=== PATIENT | male | born 1955 | race Caucasian/White ===

== ENCOUNTER 2017-05-13 14:35 | Emergency (ER) | payer OTHER, BC ==
[~2017-05-13] VITALS: Ht 167.6 cm; Wt 104.3 kg
[~2017-05-13 14:35] MED LIST: AC325T PO; ALBU0.8322 IH; CEPH-507 PO; CHOL5000 PO; D-ME118S7 PO; FLUT1DIS26 IH; FLUT1DIS27; HYDR-757 PO; IBUP-30 PO; OMEG-9 PO; OMEP20CA12 PO; OSLT75C PO; PANT40SU PO; TRM50T PO; fish oil
--- OUTSIDE RECORDS SUMMARY | 2017-05-13 14:42 | XMS REPORT | Continuity of Care Document ---
Author Author [facility] Organization [facility] Address Unknown Phone Unavailable Allergies Active Description Code Type Severity Reaction Onset Reported/Identified Relationship to Patient Clinical Status Yes methylphenidate [id number] Drug Allergy Unknown N/A 10/21/2005 Yes Sulfa (Sulfonamide Antibiotics) [id number] Drug Allergy Unknown N/A 2005 Yes ketorolac [id number] Drug Allergy Mild N/A 07/18/2009 Yes phenobarbital [id number] Drug Allergy Unknown N/A 05/14/2012 Medications There is no data. Problems Date Dx Coded Attending Type Code Diagnosis Diagnosed By 07/18/2009 Ot 816.02 07/18/2009 Ot 923.3 07/18/2009 Ot 959.5 07/18/2009 Ot E000.8 07/18/2009 Ot E030 07/18/2009 Ot E849.0 07/18/2009 Ot E918 03/14/2010 Ot 535.10 03/14/2010 Ot 562.10 03/14/2010 Ot V12.72 03/14/2010 Ot V45.89 02/19/2011 Ot V57.21 ENCOUNTER FOR OCCUPATIONAL THERAPY 02/19/2011 Ot V58.43 AFTERCARE POST SURGERY INJURY/TRAUMA 05/14/2012 Ot 568.0 PERITONEAL ARICSKWOH-QXYU-GM/INF 04/12/2014 Ot 272.4 04/12/2014 Ot 272.4 04/12/2014 Ot 785.1 04/12/2014 Ot 272.4 04/12/2014 Ot 401.9 04/12/2014 Ot 785.1 04/12/2014 Ot 786.50 04/12/2014 Ot 397.0 04/12/2014 Ot 424.0 04/12/2014 Ot 785.1 04/12/2014 Ot 786.50 04/12/2014 Ot 272.4 04/12/2014 Ot 272.4 04/12/2014 Ot 401.9 04/12/2014 Ot 550.90 04/12/2014 Ot V72.63 04/12/2014 Ot V72.83 04/12/2014 Ot V74.8 04/12/2014 HARDIK LOPEZP Ot 272.4 04/12/2014 HARDIK LOPEZP Ot 401.9 04/12/2014 DEEPAK FLORES, ALEX Wolff Ot 272.4 04/12/2014 DEEPAK FLORES, ALEX J Ot 401.9 04/12/2014 DEEPAK FLORES, ALEX J Ot 414.00 04/12/2014 DEEPAK FLORES, ALEX J Ot 496 04/12/2014 DEEPAK FLORES, ALEX Wolff Ot 786.09 04/12/2014 DEEPAK FLORES, ALEX Wolff Ot 272.4 04/12/2014 DEEPAK FLORES, ALEX Wolff Ot 401.9 04/12/2014 DEEPAK FLORES, ALEX Wolff Ot 414.00 04/12/2014 DEEPAK FLORES, ALEX Wolff Ot 496 04/12/2014 DEEPAK FLORES, ALEX Wolff Ot 786.09 04/12/2014 DEEPAK FLORES, ALEX Wolff Ot 272.4 04/12/2014 DEEPAK FLORES, ALEX Wolff Ot 278.00 04/12/2014 DEEPAK FLORES, ALEX Wolff Ot 401.9 04/12/2014 DEEPAK FLORES, ALEX Wolff Ot 414.00 04/12/2014 DEEPAK FLORES, ALEX Wolff Ot 786.50 04/12/2014 Ot 272.4 04/12/2014 Ot 272.4 04/12/2014 Ot 785.1 04/12/2014 Ot 272.4 04/12/2014 Ot 401.9 04/12/2014 Ot 785.1 04/12/2014 Ot 786.50 04/12/2014 Ot 397.0 04/12/2014 Ot 424.0 04/12/2014 Ot 785.1 04/12/2014 Ot 786.50 04/12/2014 Ot 272.4 04/12/2014 Ot 272.4 04/12/2014 Ot 401.9 04/12/2014 Ot 550.90 04/12/2014 Ot V72.63 04/12/2014 Ot V72.83 04/12/2014 Ot V74.8 04/12/2014 HARDIK LOPEZ SUPERVISOR PUMPING Ot 272.4 04/12/2014 HARDIK LOPEZP Ot 401.9 04/12/2014 DEEPAK FLORES, ALEX J Ot 272.4 04/12/2014 DEEPAK FLORES, ALEX Wolff Ot 401.9 04/12/2014 DEEPAK FLORES, ALEX J Ot 414.00 04/12/2014 DEEPAK FLORES, ALEX J Ot 496 04/12/2014 DEEPAK FLORES, ALEX Wolff Ot 786.09 04/12/2014 DEEPAK FLORES, ALEX Wolff Ot 272.4 04/12/2014 DEEPAK FLORES, ALEX J Ot 401.9 04/12/2014 DEEPAK FLORES, ALEX J Ot 414.00 04/12/2014 DEEPAK FLORES, ALEX Wolff Ot 496 04/12/2014 DEEPAK FLORES, ALEX Wolff Ot 786.09 04/12/2014 DEEPAK FLORES, ALEX Wolff Ot 272.4 04/12/2014 DEEPAK FLORES, ALEX Wolff Ot 278.00 04/12/2014 DEEPAK FLORES, ALEX Wolff Ot 401.9 04/12/2014 DEEPAK FLORES, ALEX Wolff Ot 414.00 04/12/2014 DEEPAK FLORES, ALEX Wolff Ot 786.50 04/12/2014 Ot 272.4 04/12/2014 Ot 272.4 04/12/2014 Ot 785.1 04/12/2014 Ot 272.4 04/12/2014 Ot 401.9 04/12/2014 Ot 785.1 04/12/2014 Ot 786.50 04/12/2014 Ot 397.0 04/12/2014 Ot 424.0 04/12/2014 Ot 785.1 04/12/2014 Ot 786.50 04/12/2014 Ot 272.4 04/12/2014 Ot 272.4 04/12/2014 Ot 401.9 04/12/2014 Ot 550.90 04/12/2014 Ot V72.63 04/12/2014 Ot V72.83 04/12/2014 Ot V74.8 04/12/2014 HARDIK LOPEZ SUPERVISOR PUMPING Ot 272.4 04/12/2014 HARDIK LOPEZ SUPERVISOR PUMPING Ot 401.9 04/12/2014 DEEPAK FLORES, ALEX Wolff Ot 272.4 04/12/2014 DEEPAK FLORES, ALEX Wolff Ot 401.9 04/12/2014 DEEPAK FLORES, ALEX Wolff Ot 414.00 04/12/2014 DEEPAK FLORES, BASHAR J Ot 496 04/12/2014 DEEPAK FLORES, BASRICO J Ot 786.09 04/12/2014 DEEPAK FLORES, ALEX J Ot 272.4 04/12/2014 DEEPAK FLORES, ALEX J Ot 401.9 04/12/2014 DEEPAK FLORES, BASHAR J Ot 414.00 04/12/2014 DEEPAK FLORES, BASIRCO J Ot 496 04/12/2014 DEEPAK FLORES, ALEX J Ot 786.09 04/12/2014 DEEPAK FLORES, BASHAR J Ot 272.4 04/12/2014 DEEPAK FLORES, ALEX J Ot 278.00 04/12/2014 DEEPAK FLORES, BASHAR J Ot 401.9 04/12/2014 DEEPAK FLORES, ALEX J Ot 414.00 04/12/2014 DEEPAK FLORES, ALEX J Ot 786.50 04/27/2014 DEEPAK FLORES, ALEX J Ot 272.4 04/27/2014 DEEPAK FLORES, RYANNEHAR J Ot 401.9 04/27/2014 DEEPAK FLORES, RYANNEHAR J Ot 414.00 04/27/2014 DEEPAK FLORES, RYANNEHAR J Ot 786.09 10/18/2014 JACOBS-GEORGIE PA, MARCELINA K Ot 272.4 10/18/2014 JACOBS-GEORGIE PA, MARCELINA K Ot 401.9 10/18/2014 JACOBS-GEORGIE PA, MARCELINA K Ot 414.00 10/18/2014 JACOBS-GEORGIE PA, MARCELINA K Ot 496 10/18/2014 JACOBS-GEORGIE PA, MARCELINA K Ot 785.9 11/01/2014 JACOBS-GEORGIE PA, MARCELINA K Ot 272.4 11/01/2014 JACOBS-GEORGIE PA, MARCELINA K Ot 401.9 11/01/2014 JACOBS-GEORGIE PA, MARCELINA K Ot 414.00 11/01/2014 JACOBS-GEORGIE PA, MARCELINA K Ot 496 11/01/2014 JACOBS-GEORGIE PA, MARCELINA K Ot 785.9 11/01/2014 JACOBS-GEORGIE PA, MARCELINA K Ot 272.4 11/01/2014 JACOBS-GEORGIE PA, MARCELINA K Ot 401.9 11/01/2014 JACOBS-GEORGIE PA, MARCELINA K Ot 414.00 11/01/2014 JACOBS-GEORGIE PA, MARCELINA K Ot 496 11/01/2014 MICHAEL PA, MARCELINA Ray Ot 785.9 12/01/2014 MICHAEL PA, MARCELINA Ray Ot 272.4 12/01/2014 MICHAEL PA, MARCELINA Ray Ot 401.9 12/01/2014 MICHAEL PA, MARCELINA Ray Ot 414.00 12/01/2014 MICHAEL PA, MARCELINA Ray Ot 496 12/01/2014 MICHAEL PA, MARCELINA Ray Ot 785.9 12/14/2014 Ot 272.4 12/14/2014 Ot 272.4 12/14/2014 Ot 785.1 12/14/2014 Ot 272.4 12/14/2014 Ot 401.9 12/14/2014 Ot 785.1 12/14/2014 Ot 786.50 12/14/2014 Ot 397.0 12/14/2014 Ot 424.0 12/14/2014 Ot 785.1 12/14/2014 Ot 786.50 12/14/2014 Ot 272.4 12/14/2014 Ot 272.4 12/14/2014 Ot 401.9 12/14/2014 Ot 550.90 12/14/2014 Ot V72.63 12/14/2014 Ot V72.83 12/14/2014 Ot V74.8 12/14/2014 HARDIK LOPEZ SUPERVISOR PUMPING Ot 272.4 12/14/2014 HARDIK LOPEZ SUPERVISOR PUMPING Ot 401.9 12/14/2014 DEEPAK FLORES, ALEX Wolff Ot 272.4 12/14/2014 DEEPAK FLORES, ALEX J Ot 401.9 12/14/2014 DEEPAK FLORES, ALEX J Ot 414.00 12/14/2014 DEEPAK FLORES, ALEX J Ot 496 12/14/2014 DEEPAK FLORES, ALEX J Ot 786.09 12/14/2014 DEEPAK FLORES, ALEX J Ot 272.4 12/14/2014 DEEPAK FLORES, ALEX J Ot 401.9 12/14/2014 DEEPAK FLORES, ALEX J Ot 414.00 12/14/2014 DEEPAK FLORES, ALEX J Ot 496 12/14/2014 DEEPAK FLORES, ALEX Wolff Ot 786.09 12/14/2014 DEEPAK FLORES, BASHAR J Ot 272.4 12/14/2014 DEEPAK FLORES, ALEX J Ot 278.00 12/14/2014 DEEPAK FLORES, ALEX J Ot 401.9 12/14/2014 DEEPAK FLORES, ALEX J Ot 414.00 12/14/2014 DEEPAK FLORES, ALEX J Ot 786.50 12/14/2014 DEEPAK FLORES, ALEX J Ot 272.4 12/14/2014 DEEPAK FLORES, ALEX Wolff Ot 401.9 12/14/2014 DEEPAK FLORES, ALEX Wolff Ot 414.00 12/14/2014 DEEPAK FLORES, ALEX Wolff Ot 786.09 12/14/2014 JACOBS-GEORGIE PA, MARCELINA K Ot 272.4 12/14/2014 JACOBS-GEORGIE PA, MARCELINA K Ot 401.9 12/14/2014 JACOBS-GEORGIE PA, MARCELINA K Ot 414.00 12/14/2014 JACOBS-GEORGIE PA, MARCELINA K Ot 496 12/14/2014 JACOBS-GEORGIE PA, MARCELINA K Ot 785.9 12/14/2014 JACOBS-GEORGIE PA, MARCELINA K Ot 272.4 12/14/2014 JACOBS-GEORGIE PA, MARCELINA K Ot 401.9 12/14/2014 JACOBS-GEORGIE PA, MARCELINA K Ot 414.00 12/14/2014 JACOBS-GEORGIE PA, MARCELINA K Ot 496 12/14/2014 JACOBS-GEORGIE PA, MARCELINA K Ot 785.9 12/14/2014 JACOBS-GEORGIE PA, MARCELINA K Ot 272.4 12/14/2014 JACOBS-GEORGIE PA, MARCELINA K Ot 401.9 12/14/2014 JACOBS-GEORGIE PA, MARCELINA K Ot 414.00 12/14/2014 JACOBS-GEORGIE PA, MARCELINA K Ot 496 12/14/2014 JACOBS-GEORGIE PA, MARCELINA K Ot 785.9 12/15/2014 JACOBS-GEORGIE PA, MARCELINA K Ot 272.4 12/15/2014 JACOBS-GEORGIE PA, MARCELINA K Ot 401.9 12/15/2014 JACOBS-GEORGIE PA, MARCELINA K Ot 414.00 12/15/2014 JACOBS-GEORGIE PA, MARCELINA K Ot 496 12/15/2014 JACOBS-GEORGIE PA, MARCELINA K Ot 785.9 12/26/2014 JACOBS-GEORGIE PA, MARCELINA Ray Ot 272.4 12/26/2014 JACOBS-GEORGIE PA, MARCELINA Ray Ot 401.9 12/26/2014 JACOBS-GEORGIE PA, MARCELINA Flor Ot 414.00 12/26/2014 JACOBS-GEORGIE PA, MARCELINA Flor Ot 496 12/26/2014 JACOBS-GEORGIE PA, MARCELINA Ray Ot 785.9 12/29/2014 JACOBS-GEORGIE PA, MARCELINA Ray Ot 272.4 12/29/2014 JACOBS-GEORGIE PA, MARCELINA Flor Ot 401.9 12/29/2014 JACOBS-GEORGIE PA, MARCELINA Flor Ot 414.00 12/29/2014 JACOBS-GEORGIE PA, MARCELINA Ray Ot 496 12/29/2014 JACOBS-GEORGIE PA, MARCELINA Ray Ot 785.9 12/29/2014 Ot 272.4 12/29/2014 Ot 272.4 12/29/2014 Ot 785.1 12/29/2014 Ot 272.4 12/29/2014 Ot 401.9 12/29/2014 Ot 785.1 12/29/2014 Ot 786.50 12/29/2014 Ot 397.0 12/29/2014 Ot 424.0 12/29/2014 Ot 785.1 12/29/2014 Ot 786.50 12/29/2014 Ot 272.4 12/29/2014 Ot 272.4 12/29/2014 Ot 401.9 12/29/2014 Ot 550.90 12/29/2014 Ot V72.63 12/29/2014 Ot V72.83 12/29/2014 Ot V74.8 12/29/2014 HARDIK LOPEZ SUPERVISOR PUMPING Ot 272.4 12/29/2014 HARDIK LOPEZ SUPERVISOR PUMPING Ot 401.9 12/29/2014 DEEPAK FLORES, ALEX Wolff Ot 272.4 12/29/2014 DEEPAK FLORES, ALEX Wolff Ot 401.9 12/29/2014 DEEPAK FLORES, ALEX Wolff Ot 414.00 12/29/2014 DEEPAK FLORES, ALEX Wolff Ot 496 12/29/2014 DEEPAK FLORES, ALEX Wolff Ot 786.09 12/29/2014 DEEPAK FLORES, ALEX Wolff Ot 272.4 12/29/2014 DEEPAK FLORES, ALEX J Ot 401.9 12/29/2014 DEEPAK FLORES, ALEX J Ot 414.00 12/29/2014 DEEPAK FLORES, ALEX J Ot 496 12/29/2014 DEEPAK FLORES, ALEX J Ot 786.09 12/29/2014 DEEPAK FLORES, ALEX J Ot 272.4 12/29/2014 DEEPAK FLORES, ALEX J Ot 278.00 12/29/2014 DEEPAK FLORES, RYANNEHAR J Ot 401.9 12/29/2014 DEEPAK FLORES, ALEX J Ot 414.00 12/29/2014 DEEPAK FLORES, ALEX J Ot 786.50 12/29/2014 DEEPAK FLORES, ALEX J Ot 272.4 12/29/2014 DEEPAK FLORES, ALEX J Ot 401.9 12/29/2014 DEEPAK FLORES, AELX J Ot 414.00 12/29/2014 DEEPAK FLORES, ALEX J Ot 786.09 12/29/2014 JACOBS-GEORGIE PA, MARCELINA K Ot 272.4 12/29/2014 JACOBS-GEORGIE PA, MARCELINA K Ot 401.9 12/29/2014 JACOBS-GEORGIE PA, MARCELINA K Ot 414.00 12/29/2014 JACOBS-GEORGIE PA, MARCELINA K Ot 496 12/29/2014 JACOBS-GEORGIE PA, MARCELINA K Ot 785.9 12/29/2014 JACOBS-GEORGIE PA, MARCELINA K Ot 272.4 12/29/2014 JACOBS-GEORGIE PA, MARCELINA K Ot 401.9 12/29/2014 JACOBS-GEORGIE PA, MARCELINA K Ot 414.00 12/29/2014 JACOBS-GEORGIE PA, MARCELINA K Ot 496 12/29/2014 JACOBS-GEORGIE PA, MARCELINA K Ot 785.9 12/29/2014 JACOBS-GEORGIE PA, MARCELINA K Ot 272.4 12/29/2014 JACOBS-GEORGIE PA, MARCELINA K Ot 401.9 12/29/2014 JACOBS-GEORGIE PA, MARCELINA K Ot 414.00 12/29/2014 JACOBS-GEORGIE PA, MARCELINA K Ot 496 12/29/2014 JACOBS-GEORGIE PA, MARCELINA K Ot 785.9 12/29/2014 JACOBS-GEORGIE PA, MARCELINA K Ot 272.4 12/29/2014 MICHAEL MENDOZAMARCELINA Ot 401.9 12/29/2014 MICHAEL MENDOZA MARCELINA Ray Ot 414.00 12/29/2014 MICHAEL MENDOZAMARCELINA Ot 496 12/29/2014 MICHAEL MENDOZAMARCELINA Ot 785.9 12/29/2014 Ot 272.4 12/29/2014 Ot 272.4 12/29/2014 Ot 785.1 12/29/2014 Ot 272.4 12/29/2014 Ot 401.9 12/29/2014 Ot 785.1 12/29/2014 Ot 786.50 12/29/2014 Ot 397.0 12/29/2014 Ot 424.0 12/29/2014 Ot 785.1 12/29/2014 Ot 786.50 12/29/2014 Ot 272.4 12/29/2014 Ot 272.4 12/29/2014 Ot 401.9 12/29/2014 Ot 550.90 12/29/2014 Ot V72.63 12/29/2014 Ot V72.83 12/29/2014 Ot V74.8 12/29/2014 HARDIK LOPEZ SUPERVISOR PUMPING Ot 272.4 12/29/2014 HARDIK LOPEZ SUPERVISOR PUMPING Ot 401.9 12/29/2014 DEEPAK FLORES, ALEX Wolff Ot 272.4 12/29/2014 DEEPAK FLORES, ALEX Wolff Ot 401.9 12/29/2014 DEEPAK FLORES, ALEX Wolff Ot 414.00 12/29/2014 DEEPAK FLORES, ALEX Wolff Ot 496 12/29/2014 DEEPAK FLORES, ALEX Wolff Ot 786.09 12/29/2014 DEEPAK FLORES, ALEX J Ot 272.4 12/29/2014 DEEPAK FLORES, ALEX J Ot 401.9 12/29/2014 DEEPAK FLORES, ALEX Wolff Ot 414.00 12/29/2014 DEEPAK FLORES, ALEX J Ot 496 12/29/2014 DEEPAK FLORES, ALEX Wolff Ot 786.09 12/29/2014 DEEPAK FLORES, ALEX Wolff Ot 272.4 12/29/2014 DEEPAK FLORES, ALEX Wolff Ot 278.00 12/29/2014 DEEPAK FLORES, ALEX Wolff Ot 401.9 12/29/2014 DEEPAK FLORES, ALEX Wolff Ot 414.00 12/29/2014 DEEPAK FLORES, ALEX Wolff Ot 786.50 12/29/2014 DEEPAK FLORES, ALEX Wolff Ot 272.4 12/29/2014 DEEPAK FLORES, ALEX J Ot 401.9 12/29/2014 DEEPAK FLORES, ALEX J Ot 414.00 12/29/2014 DEEPAK FLORES, ALEX Wolff Ot 786.09 12/29/2014 JACOBS-GEORGIE PA, MARCELINA K Ot 272.4 12/29/2014 JACOBS-GEORGIE PA, MARCELINA K Ot 401.9 12/29/2014 JACOBS-GEORGIE PA, MARCELINA K Ot 414.00 12/29/2014 JACOBS-GEORGIE PA, MARCELINA K Ot 496 12/29/2014 JACOBS-GEORGIE PA, MARCELINA K Ot 785.9 12/29/2014 JACOBS-GEORGIE PA, MARCELINA K Ot 272.4 12/29/2014 JACOBS-GEORGIE PA, MARCELINA K Ot 401.9 12/29/2014 JACOBS-GEORGIE PA, MARCELINA K Ot 414.00 12/29/2014 JACOBS-GEORGIE PA, MARCELINA K Ot 496 12/29/2014 JACOBS-GEORGIE PA, MARCELINA K Ot 785.9 12/29/2014 JACOBS-GEORGIE PA, MARCELINA K Ot 272.4 12/29/2014 JACOBS-GEORGIE PA, MARCELINA K Ot 401.9 12/29/2014 JACOBS-GEORGIE PA, MARCELINA K Ot 414.00 12/29/2014 JACOBS-GEORGIE PA, MARCELINA K Ot 496 12/29/2014 JACOBS-GEORGIE PA, MARCELINA K Ot 785.9 12/29/2014 JACOBS-GEORGIE PA, MARCELINA K Ot 272.4 12/29/2014 JACOBS-GEORGIE PA, MARCELINA K Ot 401.9 12/29/2014 JACOBS-GEORGIE PA, MARCELINA K Ot 414.00 12/29/2014 JACOBS-GEORGIE PA, MARCELINA K Ot 496 12/29/2014 JACOBS-GEORGIE PA, MARCELINA K Ot 785.9 12/29/2014 ALEXA DAMIAN WELL DRILL OPERATOR CABLE TOOL Ot S61.206A UNSP OPEN WOUND OF R LITTLE FINGER W/O D 12/29/2014 ALEXA DAMIAN WELL DRILL OPERATOR CABLE TOOL Ot S62.634A DISP FX OF DISTAL PHALANX OF RIGHT RING 12/29/2014 ALEXA DAMIAN WELL DRILL OPERATOR CABLE TOOL Ot W30.0XXA CONTACT WITH COMBINE HARVESTER, INITIAL 12/29/2014 ALEXA DAMIAN WELL DRILL OPERATOR CABLE TOOL Ot Y92.[address] 12/29/2014 ALEXA DAMIAN WELL DRILL OPERATOR CABLE TOOL Ot Y99.8 OTHER EXTERNAL CAUSE STATUS 12/31/2014 ALEXA DAMIAN WELL DRILL OPERATOR CABLE TOOL Ot S62.635A DISP FX OF DISTAL PHALANX OF LEFT RING F 12/31/2014 ALEXA DAMIAN WELL DRILL OPERATOR CABLE TOOL Ot S67.195A CRUSHING INJURY OF LEFT RING FINGER, INI 12/31/2014 ALEXA DAMIAN WELL DRILL OPERATOR CABLE TOOL Ot X58.XXXA EXPOSURE TO OTHER SPECIFIED FACTORS, INI 05/15/2015 Ot 272.4 05/15/2015 Ot 272.4 05/15/2015 Ot 785.1 05/15/2015 Ot 272.4 05/15/2015 Ot 401.9 05/15/2015 Ot 785.1 05/15/2015 Ot 786.50 05/15/2015 Ot 397.0 05/15/2015 Ot 424.0 05/15/2015 Ot 785.1 05/15/2015 Ot 786.50 05/15/2015 Ot 272.4 05/15/2015 Ot 272.4 05/15/2015 Ot 401.9 05/15/2015 Ot 550.90 05/15/2015 Ot V72.63 05/15/2015 Ot V72.83 05/15/2015 Ot V74.8 05/15/2015 HARDIK LOPEZ SUPERVISOR PUMPING Ot 272.4 05/15/2015 HARDIK LOPEZ SUPERVISOR PUMPING Ot 401.9 05/15/2015 DEEPAK FLORES, ALEX Wolff Ot 272.4 05/15/2015 DEEPAK FLORES, ALEX Wolff Ot 401.9 05/15/2015 DEEPAK FLORES, ALEX Wolff Ot 414.00 05/15/2015 DEEPAK FLORES, ALEX Wolff Ot 496 05/15/2015 ALEX SOTELO MD Ot 786.09 05/15/2015 ALEX SOTELO MD Ot 272.4 05/15/2015 DEEPAK FLORES, ALEX Wolff Ot 401.9 05/15/2015 ALEX SOTELO MD Ot 414.00 05/15/2015 DEEPAK FLORES, ALEX J Ot 496 05/15/2015 DEEPAK FLORES, ALEX Wolff Ot 786.09 05/15/2015 DEEPAK FLORES, ALEX J Ot 272.4 05/15/2015 DEEPAK FLORES, ALEX J Ot 278.00 05/15/2015 DEEPAK FLORES, ALEX J Ot 401.9 05/15/2015 DEEPAK FLORES, ALEX Wolff Ot 414.00 05/15/2015 DEEPAK FLORES, ALEX Wolff Ot 786.50 05/15/2015 DEEPAK FLORES, ALEX J Ot 272.4 05/15/2015 DEEPAK FLORES, ALEX Wolff Ot 401.9 05/15/2015 DEEPAK FLORES, ALEX Wolff Ot 414.00 05/15/2015 DEEPAK FLORES, ALEX Wolff Ot 786.09 05/15/2015 JACOBS-GEORGIE PA, MARCELINA K Ot 272.4 05/15/2015 JACOBS-GEORGIE PA, MARCELINA K Ot 401.9 05/15/2015 JACOBS-GEORGIE PA, MARCELINA K Ot 414.00 05/15/2015 JACOBS-GEORGIE PA, MARCELINA K Ot 496 05/15/2015 JACOBS-GEORGIE PA, MARCELINA K Ot 785.9 05/15/2015 JACOBS-GEORGIE PA, MARCELINA K Ot 272.4 05/15/2015 JACOBS-GEORGIE PA, MARCELINA K Ot 401.9 05/15/2015 JACOBS-GEORGIE PA, MARCELINA K Ot 414.00 05/15/2015 JACOBS-GEORGIE PA, MARCELINA K Ot 496 05/15/2015 JACOBS-GEORGIE PA, MARCELINA K Ot 785.9 05/15/2015 JACOBS-GEORGIE PA, MARCELINA K Ot 272.4 05/15/2015 JACOBS-GEORGIE PA, MARCELINA K Ot 401.9 05/15/2015 JACOBS-GEORGIE PA, MARCELINA K Ot 414.00 05/15/2015 JACOBS-GEORGIE PA, MARCELINA K Ot 496 05/15/2015 JACOBS-GEORGIE PA, MARCELINA K Ot 785.9 05/15/2015 JACOBS-GEORGIE PA, MARCELINA K Ot 272.4 05/15/2015 JACOBS-GEORGIE PA, MARCELINA K Ot 401.9 05/15/2015 MARCELINA HERNADEZ Ot 414.00 05/15/2015 MARCELINA HERNADEZ Ot 496 05/15/2015 MARCELINA HERNADEZ Ot 785.9 05/17/2015 Ot 272.4 05/17/2015 Ot 272.4 05/17/2015 Ot 785.1 05/17/2015 Ot 272.4 05/17/2015 Ot 401.9 05/17/2015 Ot 785.1 05/17/2015 Ot 786.50 05/17/2015 Ot 397.0 05/17/2015 Ot 424.0 05/17/2015 Ot 785.1 05/17/2015 Ot 786.50 05/17/2015 Ot 272.4 05/17/2015 Ot 272.4 05/17/2015 Ot 401.9 05/17/2015 Ot 550.90 05/17/2015 Ot V72.63 05/17/2015 Ot V72.83 05/17/2015 Ot V74.8 05/17/2015 HARDIK LOPEZ SUPERVISOR PUMPING Ot 272.4 05/17/2015 HARDIK LOPEZ SUPERVISOR PUMPING Ot 401.9 05/17/2015 DEEPAK FLORES, ALEX Wolff Ot 272.4 05/17/2015 DEEPAK FLORES, ALEX Wolff Ot 401.9 05/17/2015 DEEPAK FLORES, ALEX Wolff Ot 414.00 05/17/2015 DEEPAK FLORES, ALEX Wolff Ot 496 05/17/2015 DEEPAK FLORES, ALEX Wolff Ot 786.09 05/17/2015 DEEPAK FLORES, ALEX J Ot 272.4 05/17/2015 DEEPAK FLORES, ALEX J Ot 401.9 05/17/2015 DEEPAK FLORES, ALEX Wolff Ot 414.00 05/17/2015 DEEPAK FLORES, ALEX J Ot 496 05/17/2015 DEEPAK FLORES, ALEX Wolff Ot 786.09 05/17/2015 DEEPAK FLORES, ALEX Wolff Ot 272.4 05/17/2015 DEEPAK FLORES, ALEX Wolff Ot 278.00 05/17/2015 DEEPAK FLORES, ALEX J Ot 401.9 05/17/2015 DEEPAK FLORES, ALEX J Ot 414.00 05/17/2015 DEEPAK FLORES, ALEX Wolff Ot 786.50 05/17/2015 DEEPAK FLORES, ALEX J Ot 272.4 05/17/2015 DEEPAK FLORES, ALEX Wolff Ot 401.9 05/17/2015 DEEPAK FLORES, ALEX Wolff Ot 414.00 05/17/2015 DEEPAK FLORES, ALEX Wolff Ot 786.09 05/17/2015 JACOBS-GEORGIE PA, MARCELINA K Ot 272.4 05/17/2015 JACOBS-GEORGIE PA, MARCELINA K Ot 401.9 05/17/2015 JACOBS-GEORGIE PA, MARCELINA K Ot 414.00 05/17/2015 JACOBS-GEORGIE PA, MARCELINA K Ot 496 05/17/2015 JACOBS-GEORGIE PA, MARCELINA K Ot 785.9 05/17/2015 JACOBS-GEORGIE PA, MARCELINA K Ot 272.4 05/17/2015 JACOBS-GEORGIE PA, MARCELINA K Ot 401.9 05/17/2015 JACOBS-GEORGIE PA, MARCELINA K Ot 414.00 05/17/2015 JACOBS-GEORGIE PA, MARCELINA K Ot 496 05/17/2015 JACOBS-GEORGIE PA, MARCELINA K Ot 785.9 05/17/2015 JACOBS-GEORGIE PA, MARCELINA K Ot 272.4 05/17/2015 JACOBS-GEORGIE PA, MARCELINA K Ot 401.9 05/17/2015 JACOBS-GEORGIE PA, MARCELINA K Ot 414.00 05/17/2015 JACOBS-GEORGIE PA, MARCELINA K Ot 496 05/17/2015 JACOBS-GEORGIE PA, MARCELINA K Ot 785.9 05/17/2015 JACOBS-GEORGIE PA, MARCELINA K Ot 272.4 05/17/2015 JACOBS-GEORGIE PA, MARCELINA K Ot 401.9 05/17/2015 JACOBS-GEORGIE PA, MARCELINA K Ot 414.00 05/17/2015 JACOBS-GEORGIE PA, MARCELINA K Ot 496 05/17/2015 JACOBS-GEORGIE PA, MARCELINA K Ot 785.9 11/02/2015 Ot 272.4 HYPERLIPIDEMIA NEC/NOS 11/02/2015 Ot 785.1 PALPITATIONS 11/02/2015 Ot 272.4 HYPERLIPIDEMIA NEC/NOS 11/02/2015 Ot 401.9 HYPERTENSION NOS 11/02/2015 Ot 785.1 PALPITATIONS 11/02/2015 Ot 786.50 CHEST PAIN NOS 11/02/2015 Ot 397.0 TRICUSPID VALVE DISEASE 11/02/2015 Ot 424.0 MITRAL VALVE DISORDER 11/02/2015 Ot 785.1 PALPITATIONS 11/02/2015 Ot 786.50 CHEST PAIN NOS 11/02/2015 Ot 272.4 HYPERLIPIDEMIA NEC/NOS 11/02/2015 Ot 272.4 HYPERLIPIDEMIA NEC/NOS 11/02/2015 Ot 401.9 HYPERTENSION NOS 11/02/2015 Ot 550.90 UNILAT INGUINAL HERNIA 11/02/2015 Ot V72.63 PRE- PROCEDURAL LABORATORY EXAMINATION 11/02/2015 Ot V72.83 EXAM PRE- OPERATIVE NEC 11/02/2015 Ot V74.8 SCREEN- BACTERIAL DIS NEC 11/02/2015 LOPEZHARDIK TENA SUPERVISOR PUMPING Ot 272.4 HYPERLIPIDEMIA NEC/NOS 11/02/2015 LOPEZHARDIK TENA SUPERVISOR PUMPING Ot 401.9 HYPERTENSION NOS 11/02/2015 ALEX SOTELO MD Ot 272.4 HYPERLIPIDEMIA NEC/NOS 11/02/2015 ALEX SOTELO MD Ot 401.9 HYPERTENSION NOS 11/02/2015 ALEX SOTELO MD Ot 414.00 CORON ATHEROSCLER NOS TYPE VESSEL, NATIV 11/02/2015 ALEX SOTELO MD Ot 496 CHR AIRWAY OBSTRUCT NEC 11/02/2015 ALEX SOTELO MD Ot 786.09 RESPIRATORY ABNORM NEC 11/02/2015 ALEX SOTELO MD Ot 272.4 HYPERLIPIDEMIA NEC/NOS 11/02/2015 ALEX SOTELO MD Ot 401.9 HYPERTENSION NOS 11/02/2015 ALEX SOTELO MD Ot 414.00 CORON ATHEROSCLER NOS TYPE VESSEL, NATIV 11/02/2015 ALEX SOTELO MD Ot 496 CHR AIRWAY OBSTRUCT NEC 11/02/2015 ALEX SOTELO MD Ot 786.09 RESPIRATORY ABNORM NEC 11/02/2015 ALEX SOTELO MD Ot 272.4 HYPERLIPIDEMIA NEC/NOS 11/02/2015 ALEX SOTELO MD Ot 278.00 OBESITY, NOS 11/02/2015 ALEX SOTELO MD Ot 401.9 HYPERTENSION NOS 11/02/2015 ALEX SOTELO MD Ot 414.00 CORON ATHEROSCLER NOS TYPE VESSEL, NATIV 11/02/2015 ALEX SOTELO MD Ot 786.50 CHEST PAIN NOS 11/02/2015 DEEPAK FLORES, ALEX Wolff Ot 272.4 HYPERLIPIDEMIA NEC/NOS 11/02/2015 DEEPAK FLORES, ALEX Wolff Ot 401.9 HYPERTENSION NOS 11/02/2015 DEEPAK FLORES, ALEX Wolff Ot 414.00 CORON ATHEROSCLER NOS TYPE VESSEL, NATIV 11/02/2015 DEEPAK FLORES, ALEX Wolff Ot 786.09 RESPIRATORY ABNORM NEC 11/02/2015 MARCELINA HERNADEZ Ot 272.4 HYPERLIPIDEMIA NEC/NOS 11/02/2015 MARCELINA HERNADEZ Ot 401.9 HYPERTENSION NOS 11/02/2015 MARCELINA HERNADEZ Ot 414.00 CORON ATHEROSCLER NOS TYPE VESSEL, NATIV 11/02/2015 MARCELINA HERNADEZ Ot 496 CHR AIRWAY OBSTRUCT NEC 11/02/2015 MARCELINA HERNADEZ Ot 785.9 CARDIOVAS SYS SYMP NEC 11/02/2015 MARCELINA HERNADEZ Ot 272.4 HYPERLIPIDEMIA NEC/NOS 11/02/2015 MARCELINA HERNADEZ Ot 401.9 HYPERTENSION NOS 11/02/2015 MARCELINA HERNADEZ Ot 414.00 CORON ATHEROSCLER NOS TYPE VESSEL, NATIV 11/02/2015 MARCELINA HERNADEZ Ot 496 CHR AIRWAY OBSTRUCT NEC 11/02/2015 MARCELINA HERNADEZ Ot 785.9 CARDIOVAS SYS SYMP NEC 11/02/2015 MACRELINA HERNADEZ Ot 272.4 HYPERLIPIDEMIA NEC/NOS 11/02/2015 MARCELINA HERNADEZ Ot 401.9 HYPERTENSION NOS 11/02/2015 MARCELINA HERNADEZ Ot 414.00 CORON ATHEROSCLER NOS TYPE VESSEL, NATIV 11/02/2015 MARCELINA HERNADEZ Ot 496 CHR AIRWAY OBSTRUCT NEC 11/02/2015 MARCELINA HERNADEZ Ot 785.9 CARDIOVAS SYS SYMP NEC 11/02/2015 MARCELINA HERNADEZ K Ot 272.4 HYPERLIPIDEMIA NEC/NOS 11/02/2015 MARCELINA HERNADEZ Ot 401.9 HYPERTENSION NOS 11/02/2015 MARCELINA HERNADEZ Ot 414.00 CORON ATHEROSCLER NOS TYPE VESSEL, NATIV 11/02/2015 MARCELINA HERNADEZ Ot 496 CHR AIRWAY OBSTRUCT NEC 11/02/2015 MARCELINA HERNADEZ Ot 785.9 CARDIOVAS SYS SYMP NEC 11/02/2015 MARCELINA HERNADEZ Ot E78.5 HYPERLIPIDEMIA, UNSPECIFIED 11/03/2015 MARCELINA HERNADEZ Ot E78.5 HYPERLIPIDEMIA, UNSPECIFIED 11/16/2015 MARCELINA HERNADEZ Ot E78.5 HYPERLIPIDEMIA, UNSPECIFIED 12/27/2015 Ot 272.4 HYPERLIPIDEMIA NEC/NOS 12/27/2015 Ot 785.1 PALPITATIONS 12/27/2015 Ot 272.4 HYPERLIPIDEMIA NEC/NOS 12/27/2015 Ot 401.9 HYPERTENSION NOS 12/27/2015 Ot 785.1 PALPITATIONS 12/27/2015 Ot 786.50 CHEST PAIN NOS 12/27/2015 Ot 397.0 TRICUSPID VALVE DISEASE 12/27/2015 Ot 424.0 MITRAL VALVE DISORDER 12/27/2015 Ot 785.1 PALPITATIONS 12/27/2015 Ot 786.50 CHEST PAIN NOS 12/27/2015 Ot 272.4 HYPERLIPIDEMIA NEC/NOS 12/27/2015 Ot 272.4 HYPERLIPIDEMIA NEC/NOS 12/27/2015 Ot 401.9 HYPERTENSION NOS 12/27/2015 Ot 550.90 UNILAT INGUINAL HERNIA 12/27/2015 Ot V72.63 PRE- PROCEDURAL LABORATORY EXAMINATION 12/27/2015 Ot V72.83 EXAM PRE- OPERATIVE NEC 12/27/2015 Ot V74.8 SCREEN- BACTERIAL DIS NEC 12/27/2015 HARDIK LOPEZ SUPERVISOR PUMPING Ot 272.4 HYPERLIPIDEMIA NEC/NOS 12/27/2015 LOPEZHARDIK TENA SUPERVISOR PUMPING Ot 401.9 HYPERTENSION NOS 12/27/2015 ALEX SOTELO MD Ot 272.4 HYPERLIPIDEMIA NEC/NOS 12/27/2015 ALEX SOTELO MD Ot 401.9 HYPERTENSION NOS 12/27/2015 ALEX SOTELO MD Ot 414.00 CORON ATHEROSCLER NOS TYPE VESSEL, NATIV 12/27/2015 ALEX SOTELO MD Ot 496 CHR AIRWAY OBSTRUCT NEC 12/27/2015 ALEX SOTELO MD Ot 786.09 RESPIRATORY ABNORM NEC 12/27/2015 ALEX SOTELO MD Ot 272.4 HYPERLIPIDEMIA NEC/NOS 12/27/2015 ALEX SOTELO MD Ot 401.9 HYPERTENSION NOS 12/27/2015 ALEX SOTELO MD Ot 414.00 CORON ATHEROSCLER NOS TYPE VESSEL, NATIV 12/27/2015 ALEX SOTELO MD Ot 496 CHR AIRWAY OBSTRUCT NEC 12/27/2015 ALEX SOTELO MD Ot 786.09 RESPIRATORY ABNORM NEC 12/27/2015 ALEX SOTELO MD Ot 272.4 HYPERLIPIDEMIA NEC/NOS 12/27/2015 ALEX SOTELO MD Ot 278.00 OBESITY, NOS 12/27/2015 ALEX SOTELO MD Ot 401.9 HYPERTENSION NOS 12/27/2015 ALEX SOTELO MD Ot 414.00 CORON ATHEROSCLER NOS TYPE VESSEL, NATIV 12/27/2015 ALEX SOTELO MD Ot 786.50 CHEST PAIN NOS 12/27/2015 ALEX SOTELO MD Ot 272.4 HYPERLIPIDEMIA NEC/NOS 12/27/2015 ALEX SOTELO MD Ot 401.9 HYPERTENSION NOS 12/27/2015 ALEX SOTELO MD Ot 414.00 CORON ATHEROSCLER NOS TYPE VESSEL, NATIV 12/27/2015 ALEX SOTELO MD Ot 786.09 RESPIRATORY ABNORM NEC 12/27/2015 MARCELINA HERNADEZ Ot 272.4 HYPERLIPIDEMIA NEC/NOS 12/27/2015 MARCELINA HERNADEZ Ot 401.9 HYPERTENSION NOS 12/27/2015 MARCELINA HERNADEZ Ot 414.00 CORON ATHEROSCLER NOS TYPE VESSEL, NATIV 12/27/2015 MARCELINA HERNADEZ Ot 496 CHR AIRWAY OBSTRUCT NEC 12/27/2015 MARCELINA HERNADEZ Ot 785.9 CARDIOVAS SYS SYMP NEC 12/27/2015 MARCELINA HERNADEZ Ot 272.4 HYPERLIPIDEMIA NEC/NOS 12/27/2015 MARCELINA HERNADEZ Ot 401.9 HYPERTENSION NOS 12/27/2015 MARCELINA HERNADEZ Ot 414.00 CORON ATHEROSCLER NOS TYPE VESSEL, NATIV 12/27/2015 MARCELINA HERNADEZ Ot 496 CHR AIRWAY OBSTRUCT NEC 12/27/2015 MARCELINA HERNADEZ Ot 785.9 CARDIOVAS SYS SYMP NEC 12/27/2015 MARCELINA HERNADEZ Ot 272.4 HYPERLIPIDEMIA NEC/NOS 12/27/2015 MARCELINA HERNADEZ Ot 401.9 HYPERTENSION NOS 12/27/2015 MARCELINA HERNADEZ Ot 414.00 CORON ATHEROSCLER NOS TYPE VESSEL, NATIV 12/27/2015 MARCELINA HERNADEZ Ot 496 CHR AIRWAY OBSTRUCT NEC 12/27/2015 MARCELINA HERNADEZ Ot 785.9 CARDIOVAS SYS SYMP NEC 12/27/2015 MARCELINA HERNADEZ Ot 272.4 HYPERLIPIDEMIA NEC/NOS 12/27/2015 MARCELINA HERNADEZ Ot 401.9 HYPERTENSION NOS 12/27/2015 MARCELINA HERNADEZ Ot 414.00 CORON ATHEROSCLER NOS TYPE VESSEL, NATIV 12/27/2015 MARCELINA HERNADEZ Ot 496 CHR AIRWAY OBSTRUCT NEC 12/27/2015 MARCELINA HERNADEZ Ot 785.9 CARDIOVAS SYS SYMP NEC 12/27/2015 MARCELINA HERNADEZ Ot E78.5 HYPERLIPIDEMIA, UNSPECIFIED 02/28/2016 PATRICIO MCGRATH MD Ot N20.0 CALCULUS OF KIDNEY 02/28/2016 PATRICIO MCGRATH MD Ot R31.0 GROSS HEMATURIA Procedures There is no data. Results There is no data. Encounters ACCT No. Visit Date/Time Discharge Status Pt. 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 [facility] ER FINGER LAC [id number] 12/14/2014 11:50:00 12/14/2014 23:59:59 CLS Outpatient MARCELINA HERNADEZ [facility] CARD CAD COPD CAROTID BRUIT HTN HYPERLIPIDEMIA [id number] 11/07/2014 13:42:00 11/07/2014 23:59:59 CLS Outpatient MARCELINA HERNADEZ [facility] CARD CAD COPD CAROTID BRUIT HTN HYPERLIPIDEMIA [id number] 10/12/2014 10:40:00 10/12/2014 23:59:59 CLS Outpatient MARCELINA HERNADEZ [facility] RAD CAD COPD CAROTID BRUIT HTN HYPERLIPIDEMIA [id number] 10/12/2014 09:51:00 10/12/2014 23:59:59 CLS Outpatient MARCELINA HERNADEZ [facility] LAB CAD;COPD; CAROTID BRUIT;HTN;HYPERLIPIDEMIA [id number] 04/12/2014 08:41:00 04/12/2014 23:59:59 CLS Outpatient ALEX SOTELO MD [facility] LAB CAD,HRN,HYPERLIPADEMIA [id number] 08/11/2013 09:47:00 08/11/2013 23:59:59 CLS Outpatient ALEX SOTELO MD [facility] LAB CAD,HTN,HLP,OBESITY [id number] 06/22/2013 11:27:00 06/22/2013 23:59:59 CLS Outpatient ALEX SOTELO MD [facility] LAB CAD,COPD,THN, HYPERLIPEMIA [id number] 06/10/2013 19:46:00 06/10/2013 23:59:59 CLS Outpatient [id number] 05/04/2013 11:04:00 05/04/2013 23:59:59 CLS Outpatient ALEX SOTELO MD [facility] LAB CAD,COPD,HTN [id number] 07/24/2012 08:37:00 07/24/2012 23:59:59 [facility] Outpatient HARDIK LOPEZ [facility] LAB HYPERTENSION, HYPERLIPIDEMIA [id number] 05/14/2012 07:47:00 Document Registration [id number] 05/11/2012 12:03:00 Document Registration [id number] 04/19/2012 09:07:00 Document Registration [id number] 11/25/2011 07:20:00 Document Registration [id number] 11/11/2011 10:28:00 Document Registration [id number] 10/13/2011 08:39:00 Document Registration [id number] 03/19/2011 12:13:00 Document Registration [id number] 01/31/2011 12:52:00 Document Registration [id number] 09/10/2010 12:52:00 Document Registration [id number] 03/14/2010 09:34:00 Document Registration [id number] 02/04/2010 08:39:00 Document Registration [id number] 07/18/2009 20:47:00 Document Registration
[2017-05-13] MEDS ORDERED: NS 100 ML (IVPB) BAG IV ONE (15:30)
[2017-05-13] MEDS ORDERED: IOHEXOL 350 MG/ML 100 ML (OMNIPAQUE 350) VIAL IV ONE (15:30)
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
[2017-05-13] MEDS ORDERED: TRAM50TA2 PO (17:01)
[2017-05-13] MEDS ORDERED: ORPH100T PO (17:01)
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
[2017-05-13 17:09] VITALS: BP 142/79
== END 2017-05-13 17:09 | disposition home or self-care (01) ==
LOC: EDUNIT# 14:35 → ER 14:37
DX: S43.401A Unspecified sprain of right shoulder joint, initial encounter (principal); S93.402A Sprain of unspecified ligament of left ankle, initial encounter; S60.212A Contusion of left wrist, initial encounter; S80.212A Abrasion, left knee, initial encounter; E78.00 Pure hypercholesterolemia, unspecified; I10 Essential (primary) hypertension; J45.909 Unspecified asthma, uncomplicated; Z90.49 Acquired absence of other specified parts of digestive tract; Z88.2 Allergy status to sulfonamides; Z88.6 Allergy status to analgesic agent; Z88.8 Allergy status to other drugs, medicaments and biological substances; V43.62XA Car passenger injured in collision with other type car in traffic accident, initial encounter
CPT/HCPCS: 70450; 70486; 72125; 73030; 73110; 73562; 73610; 74177

== ENCOUNTER → 2019-12-09 | Outpatient (CLI) | payer BC, OTHER ==
[~2019-12-09] MED LIST changes: +HYDR-4226 PO; -HYDR-757 PO; +ORPH100T PO
== END ==
LOC: LABNPT 08:30
PROVIDERS: ATTEND Family Medicine
DX: R05 Cough (principal); R06.00 Dyspnea, unspecified; Z20.828 Contact with and (suspected) exposure to other viral communicable diseases
CPT/HCPCS: 87635

== ENCOUNTER → 2020-03-20 | Outpatient (CLI) | payer BC ==
[~2020-03-20] MED LIST changes: +RT-ALBUTEROL SULF 2.5 MG/3 ML PRE-MIX VIAL INH ONE
== END ==
LOC: RT 11:23
PROVIDERS: ATTEND Family Medicine
DX: R06.00 Dyspnea, unspecified (principal)
CPT/HCPCS: 94060; 94726; 94729

== ENCOUNTER → 2020-07-25 | Outpatient (CLI) | payer BC ==
[~2020-07-25] MED LIST changes: -RT-ALBUTEROL SULF 2.5 MG/3 ML PRE-MIX VIAL INH ONE
== END ==
LOC: CARD 11:24
PROVIDERS: ATTEND Internal Medicine Cardiovascular Disease
DX: I10 Essential (primary) hypertension (principal); I25.10 Atherosclerotic heart disease of native coronary artery without angina pectoris
CPT/HCPCS: 93306

== ENCOUNTER → 2020-09-13 | Outpatient (CLI) | payer BC ==
[~2020-09-13] VITALS: Ht 167 cm; Wt 104.0 kg
[~2020-09-13] MED LIST changes: +CATHETER FLUSH 10 ML SYR IV PRN; +REGADENOSON 0.4 MG/5 ML SYR (LEXISCAN) IV ONE
[2020-09-13 09:19] VITALS: BP 148/91
--- NOTE | 2020-09-14 12:52 | Cardiology Stress Test Report ---
Stress Test Report Date of Procedure/Referring: Date of Procedure: Sep 13, 2020 PCP Alex Kirk MD Admitting Physician Azucena Trotter MD Indications: HTN Baseline Heart Rate: 65 Baseline Blood Pressure: Blood Pressure Systolic: 148 Blood Pressure Diastolic: 91 Baseline Vitals Vital Signs Date Time Temp Pulse Resp B/P (MAP) Pulse Ox O2 Delivery O2 Flow Rate FiO2 09/13/20 09:19 66 148/91 (110) Baseline EKG: Baseline EKG: NSR Summary After explaining the procedure to the patient, he signed a consent and then brought to the stress nuclear laboratory. Patient received 0.4 mg Lexiscan for stress test, ECG, heart rate and blood pressure were monitored continuously. Resting and stress dose of radio tracer were injected, imaging was acquired and reviewed in short axis, horizontal long axis and vertical long axis views. TID: 1.04 SSS: 3 SDS: 3 EF: 59 1. Patient tolerated Lexiscan well 2. No significant ischemia or infarction on SPECT images 3. Normal left ventricular size, EF 59% ALEX KIRK MD Sep 14, 2020 12:52
== END ==
LOC: CARD 08:15
PROVIDERS: ATTEND Internal Medicine Cardiovascular Disease
DX: I10 Essential (primary) hypertension (principal); I25.10 Atherosclerotic heart disease of native coronary artery without angina pectoris
CPT/HCPCS: 78452; 93017; A9502

== ENCOUNTER → 2022-04-12 | Outpatient (CLI) | payer OTHER ==
[~2022-04-12] VITALS: Ht 172.7 cm; Wt 113.4 kg
[~2022-04-12] MED LIST changes: -CATHETER FLUSH 10 ML SYR IV PRN; -REGADENOSON 0.4 MG/5 ML SYR (LEXISCAN) IV ONE
== END ==
LOC: DSME 11:57
PROVIDERS: ATTEND Family Medicine
DX: E11.9 Type 2 diabetes mellitus without complications (principal); I10 Essential (primary) hypertension

== ENCOUNTER 2023-01-22 05:42 | Outpatient (CLI) | payer OTHER ==
[~2023-01-22] VITALS: Ht 172.7 cm; Wt 103.9 kg
[~2023-01-22 05:42] MED LIST changes: -ORPH100T PO; +ORPH100T3 PO
[2023-01-28] MEDS ORDERED: CETI10TA49 PO (13:21)
[2023-01-28] MEDS ORDERED: ASPI-1238 PO (13:21)
== END 2023-01-28 13:30 | disposition home or self-care (01) ==
LOC: PREOP 05:42
PROVIDERS: ATTEND Surgery
DX: Z01.818 Encounter for other preprocedural examination (principal)

== ENCOUNTER 2023-02-04 07:03 | Day surgery (SDC) | payer OTHER ==
[~2023-02-04] VITALS: Ht 172.7 cm; Wt 103.9 kg
[~2023-02-04 07:03] MED LIST changes: +ASPI-1238 PO; +CETI10TA49 PO
[2023-02-04] MEDS ORDERED: LACTATED RINGERS 1,000 ML 1,000 ML IV STA (07:08)
[2023-02-04 07:25] VITALS: BP 158/90
--- NOTE | 2023-02-04 08:16 | Progress Note-Pre Operative ---
Pre-Operative Progress Note Date H&P Reviewed: Feb 04, 2023 Time H&P Reviewed: 08:04 History & Physical: H&P Reviewed, Patient Examed, No changes noted Pre-Operative Diagnosis: hx polyps SHIRA LOOMIS DO Feb 04, 2023 08:15
--- NOTE | 2023-02-04 08:39 | Progress Note-Post Operative ---
Post-Operative Progess Note Surgeon (s)/Can Vacuum Tester (s) Surgeon SHIRA LOOMIS DO Can Vacuum Tester: none Pre-Operative Diagnosis hx polyps Post-Operative Diagnosis colon polyps Procedure & Operative Findings Date of Procedure 02/04/23 Procedure Performed/Findings colonoscopy with hot biopsy polypectomy x2 Anesthesia Type per FURNITURE CLEANER Estimated Blood Loss Estimated blood loss (mL): none Specimens/Packing Specimens Removed ascending and transverse polyps SHIRA LOOMIS DO Feb 04, 2023 08:39
--- NOTE | 2023-02-04 08:40 | Discharge Inst-Simple/Standard ---
Discharge Inst-Standard Patient Instructions/Follow Up Plan of Care/Instructions/FU: 2 weeks simran Activity as Tolerated: Yes Discharge Diet: Regular Diet SHIRA LOOMIS DO Feb 04, 2023 08:40
[2023-02-04 08:45] VITALS: BP 113/58
[2023-02-04 08:53] VITALS: BP 113/58
[2023-02-04 09:02] VITALS: BP 113/58
--- NOTE | 2023-02-04 09:37 | Anesthesia-General Post-Op ---
MAC Patient Condition Mental Status/LOC: Same as Preop Cardiovascular: Satisfactory Nausea/Vomiting: Absent Respiratory: Satisfactory Pain: Controlled Complications: Absent Post Op Complications Complications None Follow Up Care/Instructions Patient Instructions None needed. Anesthesiology Discharge Order Discharge Order Patient is doing well, no complaints, stable vital signs, no apparent adverse anesthesia problems. No complications reported per nursing. MARGARET SAAB CRNA Feb 04, 2023 09:37
--- NOTE | 2023-02-04 15:26 | OPERATIVE REPORT ---
DATE OF SERVICE: 02/04/2023 PREOPERATIVE DIAGNOSIS: History of polyps. POSTOPERATIVE DIAGNOSIS: Colon polyps. PROCEDURE: Colonoscopy with hot biopsy polypectomy x2. SURGEON: Shira Kelly DO ANESTHESIA: Per COMMERCIAL SALES CONSULTANT. ESTIMATED BLOOD LOSS: None. COMPLICATIONS: None. INDICATIONS: The patient is a 68-year-old male with history of polyps. He understands risks and benefits of procedure and wishes to proceed. Consent was signed in chart. DESCRIPTION OF PROCEDURE: The patient was taken to the endoscopy suite. He was placed in left lateral recumbent position. Timeout was performed. Digital rectal exam was performed. No palpable polyps, masses or ulcerations. Scope was inserted in the rectum, advanced all the way to the cecum with minimal difficulty. Prep was adequate. Scope was slowly retracted back. No polyps, masses or ulcerations in the cecum. The ileocecal valve was intubated, had normal appearance. Scope was retracted back into the ascending colon. Small polyp was present, which hot biopsy polypectomy was performed. Scope was then continuously retracted back. No polyps, masses or ulcerations within the remainder of the ascending and transverse colon. Another small polyp was present, which hot biopsy polypectomy. Scope was then continuously retracted back. No polyps, masses or ulcerations in remainder of the transverse, descending, sigmoid, and rectum. The scope was retroflexed, noting no other pathology. Scope was returned to its normal position, slowly withdrawn until completely removed. The patient tolerated the procedure well without complications, taken to recovery room in stable condition. RECOMMENDATIONS: The patient will follow up in 2 weeks to discuss pathology results. He will need repeat colonoscopy in 5 years. Any issues before that, he will be seen at that time. Job ID: [id number] DocumentID: [id number] Dictated Date: 02/04/2023 08:39:54 Construction Management Instructor Date: 02/04/2023 15:25:00 Dictated By: SHIRA KELLY DO
== END 2023-02-04 09:17 | disposition home or self-care (01) ==
LOC: ENDO 07:03
PROVIDERS: ATTEND Surgery
DX: Z12.11 Encounter for screening for malignant neoplasm of colon (principal); D12.2 Benign neoplasm of ascending colon; D12.3 Benign neoplasm of transverse colon; L98.9 Disorder of the skin and subcutaneous tissue, unspecified; E66.9 Obesity, unspecified; Z68.34 Body mass index [BMI] 34.0-34.9, adult; Z79.02 Long term (current) use of antithrombotics/antiplatelets
CPT/HCPCS: 45384; 82947; G0416; 88305